=== PATIENT | male | born 1985 | race Caucasian/White ===

== ENCOUNTER 2018-12-21 10:01 | Emergency (ER) | payer OTHER ==
[2018-12-21] MEDS ORDERED: NORMAL SALINE 1000 ML 1,000 ML IV ONE (10:33)
[2018-12-21] MEDS ORDERED: MAGNESIUM SULFATE/D5W 1 GM/100 ML RTUPB IV ONE (10:34)
[2018-12-21] MEDS ORDERED: KETOROLAC TROMETHAMINE INJ/PF 30 MG/1 ML SDV IV ONE (10:34)
[2018-12-21] MEDS ORDERED: DEXAMETHASONE SOD PHOS INJ 10 MG/1 ML VIAL IV ONE (10:34)
[2018-12-21] MEDS ORDERED: METOCLOPRAMIDE HCL INJ/PF 10 MG/2 ML SDV IV ONE (10:34)
--- NOTE | 2018-12-21 10:34 | ER Document Report ---
ED General - General Chief Complaint: Headache Stated Complaint: FLU SYMPTOMS Time Seen by Provider: 12/21/18 10:21 Notes: Patient is a 33-year-old male that presents to the emergency department for chief complaint of fever and headache. Patient reports that started having headache yesterday morning, an adult over the course of the day, had been taken ibuprofen and Excedrin, without much relief of his headache. He then developed a fever which she recorded as a T-max of 103.2 yesterday evening, when he had the fever he was having associated nausea and vomiting, was able to keep any medicine down to try to help with that. He states that the fever broke last night he had a sweat, and feels better in that regard, still has some associated body aches, but the headache is his major concern, he has associated photophobia, and nausea. He has had migraines in the past, and this is similar to them, but he does not have frequent migraines. He denies having any numbness, tingling or weakness in his arms or legs, denies any blurred vision or change in vision, and denies having any neck stiffness. Past Medical History: Denies chronic medical conditions Past Surgical History: ACL surgery, cholecystectomy Social History: Admits to occasional alcohol use, denies tobacco or illicit drug use. Family History: Reviewed and noncontributory for presenting illness Allergies: Reviewed, see documented allergy list. REVIEW OF SYSTEMS: Other than noted above, the 12 point review of systems was reviewed with the patient and were negative, all pertinent findings are included in the HPI. PHYSICAL EXAMINATION: Vital signs reviewed, nursing noted reviewed. GENERAL: Patient appears uncomfortable on exam, but in no immediate distress HEAD: Atraumatic, normocephalic. EYES: Eyes appear normal, extraocular movements intact, sclera anicteric, conjunctiva are normal. ENT: nares patent, oropharynx clear without exudates. Moist mucous membranes. NECK: Normal range of motion, supple without lymphadenopathy LUNGS: Breath sounds clear to auscultation bilaterally and equal. No wheezes rales or rhonchi. HEART: Regular rate and rhythm without murmurs ABDOMEN: Soft, nontender, normoactive bowel sounds. No rebound, guarding, or rigidity. No masses appreciated. EXTREMITIES: Nontender, good range of motion, no pitting or edema. NEUROLOGICAL: No focal neurological deficits. Moves all extremities spontaneously Motor and sensory grossly intact on exam. PSYCH: Normal mood, normal affect. SKIN: Warm, Dry, normal turgor, no rashes or lesions noted on exposed skin TRAVEL OUTSIDE OF THE [place] IN LAST 30 DAYS: No - Related Data Allergies/Adverse Reactions: No Known Allergies Allergy (Verified 12/21/18 10:24) Past Medical History - Social History Smoking Status: Never Smoker Chew tobacco use (# tins/day): No Frequency of alcohol use: Occasional Drug Abuse: None Family History: Reviewed & Not Pertinent Patient has suicidal ideation: No Patient has homicidal ideation: No Renal/ Medical History: Denies: Hx Peritoneal Dialysis Past Surgical History: Reports: Hx Cholecystectomy, Hx Orthopedic Surgery - acl reconstruction Physical Exam - Vital signs Vitals: Temp Pulse Resp BP Pulse Ox 99.3 F 72 18 137/78 H 98 12/21/18 10:09 12/21/18 10:09 12/21/18 10:09 12/21/18 10:09 12/21/18 10:09 Course - Re-evaluation Re-evalutation: Patient seen and examined vital signs reviewed. Patient was evaluated and treated as appropriate for the patient's presenting symptoms and complaint, with consideration of any critical or life threatening conditions that may be associated with their obtained history and exam as noted above. Patient was treated with IV fluids, IV magnesium, dexamethasone, Toradol, and Reglan The patient was re-evaluated and was much improved, states he wanted to get some sleep, he is updated that his influenza was negative, will continue to monitor and repeat exam. Patient was reexamined again, and was feeling much better, his headache was completely resolved, at this point he did feel comfortable being discharged home. Evaluation was most consistent with headache, nonspecific and flulike symptoms, advised him to get rest, stay hydrated, and given a prescription for Fioricet, as well as Zofran to help with his symptoms at home. Plan of care was discussed with the patient at this point, after careful consideration I feel that that patient can be discharged from the emergency department, the patient was educated treatments and reasons to return to the emergency department based on their presumed diagnosis as noted above, they were advised to followup with a primary care physician in 2-3 days. Patient was agreeable to plan of care. *Note is created using voice recognition software and may contain spelling, syntax or grammatical errors. Laboratory 12/21/18 10:50 Influenza A (Rapid) NEGATIVE Influenza B (Rapid) NEGATIVE - Vital Signs Vital signs: Temp Pulse Resp BP Pulse Ox 99.3 F 72 18 137/78 H 98 12/21/18 10:09 12/21/18 10:09 12/21/18 10:09 12/21/18 10:09 12/21/18 10:09 Discharge - Discharge Clinical Impression: Flu-like symptoms Headache Qualifiers: Headache type: unspecified Headache chronicity pattern: unspecified pattern Intractability: not intractable Qualified Code(s): R51 - Headache Condition: Stable Disposition: HOME, SELF-CARE Instructions: Headache ([facility]) Additional Instructions: Please take medications as prescribed for headache and nausea and vomiting if needed, if your symptoms however are worsening, not improving at home, do not hesitate to return to the emergency department. If you develop numbness or weakness in 1 of your arms or legs or face, or slurred speech, do not hesitate to return to the emergency department immediately. Prescriptions: Butalb/Acetaminophen/Caffeine [Fioricet 50-300-40 mg Capsule] 1 cap PO Q6H PRN #12 cap PRN Reason: headache Ondansetron [Zofran Odt 4 mg Tablet] 1 tab PO Q8H PRN #15 tab.rapdis PRN Reason: For Nausea/Vomiting Referrals: TANYA RAO MD [ACTIVE STAFF] - Follow up in 3-5 days (or your primary care. )
[2018-12-21 11:25] LABS: A TYPE INFLUENZA AG NEGATIVE (NEGATIVE); B INFLUENZA AG NEGATIVE (NEGATIVE)
[2018-12-21 12:25] VITALS: BP 147/84
== END 2018-12-21 12:39 | disposition home or self-care (01) ==
LOC: ER 10:01
DX: R51 Headache (principal); R11.2 Nausea with vomiting, unspecified
CPT/HCPCS: 99283; 96375; 96365; 87804; J1885; J2765; J3475; J7030; J1100

== ENCOUNTER 2018-12-21 16:42 | Emergency (ER) | payer OTHER ==
[2018-12-21] MEDS ORDERED: NORMAL SALINE 1000 ML 1,000 ML IV ONE (16:54)
[2018-12-21] MEDS ORDERED: HYDROMORPHONE HCL INJ/PF 2 MG/ML AMPULE IV ONE (16:54)
[2018-12-21] MEDS ORDERED: PROMETHAZINE HCL INJ 25 MG/1 ML VIAL IV ONE (16:55)
--- NOTE | 2018-12-21 16:56 | ER Document Report ---
ED Medical Screen (RME) - General Chief Complaint: Headache Stated Complaint: HEADACHE Time Seen by Provider: 12/21/18 16:52 Notes: Patient is a 33-year-old male that presents to the emergency department for chief complaint of headache. Patient reports that his headache did improve for several hours after being discharged from the emergency department, but then came back, he took the Zofran and Fioricet as prescribed, his headache worsen, not explaining of body aches as well and decided come back to the emergency department to be reevaluated. Denies weakness in one arm or one leg, denies neck stiffness. ROS: Other than noted above, the 12 point review of systems was reviewed with the patient and were negative, all pertinent findings are included in the HPI. PHYSICAL EXAMINATION: Vital signs reviewed. GENERAL: Patient appears uncomfortable HEAD: Atraumatic, normocephalic. EYES: Pupils equal round extraocular movements intact, conjunctiva are normal. ENT: Nares patent NECK: Normal range of motion CV: Heart regular rate and rhythm LUNGS: No respiratory distress Musculoskeletal: Normal range of motion NEUROLOGICAL: Normal speech PSYCH: Patient appears uncomfortable MDM: Patient seen and examined for rapid initial assessment. Vital signs reviewed. A comprehensive ED assessment and evaluation of the patient, analysis of test results and completion of the medical decision making process will be conducted by additional ED providers. *Note is created using voice recognition software and may contain spelling, syntax or grammatical errors. TRAVEL OUTSIDE OF THE [place] IN LAST 30 DAYS: No - Related Data Allergies/Adverse Reactions: No Known Allergies Allergy (Verified 12/21/18 16:43) Past Medical History Renal/ Medical History: Denies: Hx Peritoneal Dialysis Past Surgical History: Reports: Hx Cholecystectomy, Hx Orthopedic Surgery - acl reconstruction
[2018-12-21 17:31] LABS: ABSOLUTE MONOCYTES (AUTO) 0.1 10^3/uL (0.1-1.4); ABSOLUTE NEUT (AUTO) 6.3 10^3/uL (1.7-8.2); BASOPHILS % (AUTO) 0.2 % (0-2); HEMATOCRIT 45.2 % (37.9-51.0); HEMOGLOBIN 15.6 g/dL (13.5-17.0); LYMPHOCYTES % (AUTO) 13.2 % (13-45); MEAN CORPUSCULAR HEMOGLOBIN 30.2 pg (27.0-33.4); MEAN CORPUSCULAR HGB CONC 34.6 g/dL (32.0-36.0); MEAN CORPUSCULAR VOLUME 87 fl (80-97); MONOCYTES % (AUTO) 1.8 % (3-13); PLATELET COUNT 235 10^3/uL (150-450); RED BLOOD COUNT 5.18 10^6/uL (4.35-5.55); RED CELL DISTRIBUTION WIDTH 13.2 % (11.5-14.0); SEGMENTED NEUTROPHILS % (AUTO) 84.8 % (42-78); TOTAL CELLS COUNTED % (AUTO) 100 %; WHITE BLOOD COUNT 7.4 10^3/uL (4.0-10.5)
--- NOTE | 2018-12-21 17:52 | RADIOLOGY REPORT (SQ) ---
EXAM DESCRIPTION: CT HEAD WITHOUT COMPLETED DATE/TIME: 12/21/2018 5:36 pm REASON FOR STUDY: headache COMPARISON: None. TECHNIQUE: Axial images acquired through the brain without intravenous contrast. Images reviewed wi th bone, brain and subdural windows. Additional sagittal and coronal reconstructions were generated. Images stored on PACS. All CT scanners at this facility use dose modulation, iterative reconstruction, and/or weight based d osing when appropriate to reduce radiation dose to as low as reasonably achievable (ALARA). [facility]: Dose Right [facility]: CareDose [facility]: Dose Right [facility]: Teradose 4D [facility]: Zentact RADIATION DOSE: CT Rad equipment meets quality standard of care and radiation dose reduction techniq ues were employed. CTDIvol: 53.2 mGy. DLP: 1017 mGy-cm. mGy. LIMITATIONS: None. FINDINGS: VENTRICLES: Normal size and contour. CEREBRUM: No masses. No hemorrhage. No midline shift. No evidence for acute infarction. Normal gra y/white matter differentiation. No areas of low density in the white matter. CEREBELLUM: No masses. No hemorrhage. No alteration of density. No evidence for acute infarction. EXTRAAXIAL SPACES: No fluid collections. No masses. ORBITS AND GLOBE: No intra- or extraconal masses. Normal contour of globe without masses. CALVARIUM: No fracture. PARANASAL SINUSES: No fluid or mucosal thickening. SOFT TISSUES: Small nonspecific nodules within subcutaneous fat overlying the left calvarium. OTHER: No other significant finding. IMPRESSION: NO ACUTE INTRACRANIAL IMAGING FINDINGS. EVIDENCE OF ACUTE STROKE: NO. COMMENT: Quality ID # [id number]: Final reports with documentation of one or more dose reduction techniques (e.g., Automated exposure control, adjustment of the mA and/or kV according to patient size, use of iterative reconstruction technique) TECHNICAL DOCUMENTATION: JOB ID: [id number] [employer]- All Rights Reserved Reading location - IP/workstation name: [email or web address]
[2018-12-21] MEDS ORDERED: PROCHLORPERAZINE EDISYLATE INJ 10 MG/2 ML VIAL IV ONE (19:34)
--- NOTE | 2018-12-21 19:34 | ER Document Report ---
ED Headache - General Chief Complaint: Headache Stated Complaint: HEADACHE Time Seen by Provider: 12/21/18 16:52 Primary Care Provider: EMMA MARCUS FNP-C [Primary Care Provider] - Follow up tomorrow Cannot obtain history due to: Intoxicated - From sedating medications given in triage Notes: Patient is a 33-year-old male without chronic medical problems who presents with 2 days of headache, body aches and fever. Patient states his last recorded fever was late last night. His son was recently positive for both flu a and flu B. Patient was seen in the emergency department earlier today, had a relatively reassuring workup and was discharged home. States that he did have relief after receiving a migraine cocktail but that shortly after getting home his headache rebounded, became more severe prompting him to return to the emergency department for repeat assessment. Patient denies any significant neck stiffness or rigidity. No focal weakness or numbness. History is somewhat limited at the time of my initial assessment the patient is quite sedated from receiving hydromorphone and promethazine in triage. TRAVEL OUTSIDE OF THE [place] IN LAST 30 DAYS: No - Related Data Allergies/Adverse Reactions: No Known Allergies Allergy (Verified 12/21/18 16:43) Past Medical History - General Information source: Patient, Relative - Social History Smoking Status: Never Smoker Chew tobacco use (# tins/day): No Frequency of alcohol use: Rare Drug Abuse: None Lives with: Spouse/Significant other Family History: Reviewed & Not Pertinent Patient has suicidal ideation: No Patient has homicidal ideation: No Renal/ Medical History: Denies: Hx Peritoneal Dialysis Past Surgical History: Reports: Hx Cholecystectomy, Hx Orthopedic Surgery - acl reconstruction Review of Systems - Review of Systems Notes: Constitutional: Positive for fever. HENT: Negative for sore throat. Eyes: Negative for visual changes. Cardiovascular: Negative for chest pain. Respiratory: Negative for shortness of breath. Gastrointestinal: Positive for nausea and vomiting Genitourinary: Negative for dysuria. Musculoskeletal: Negative for back pain. Skin: Negative for rash. Neurological: Positive headache 10 point ROS negative except as marked above and in HPI. Physical Exam - Vital signs Vitals: Temp Pulse Resp BP Pulse Ox 99.5 F 96 18 136/86 H 99 12/21/18 16:48 12/21/18 16:48 12/21/18 16:48 12/21/18 16:48 12/21/18 16:48 Interpretation: Normal Notes: PHYSICAL EXAMINATION: GENERAL: Sedated although wakes to loud voice, responds to questions but does fall back to sleep. HEAD: Atraumatic, normocephalic. EYES: Pupils equal round and reactive to light, extraocular movements intact, sclera anicteric, conjunctiva are normal. ENT: nares patent, oropharynx clear without exudates. Moderately dry mucous membranes. NECK: Normal range of motion, supple without lymphadenopathy, no meningismus, full neck range of motion. LUNGS: Breath sounds clear to auscultation bilaterally and equal. No wheezes rales or rhonchi. HEART: Regular rate and rhythm without murmurs ABDOMEN: Soft, nontender, normoactive bowel sounds. No guarding, no rebound. No masses appreciated. EXTREMITIES: Normal range of motion, no pitting or edema. No cyanosis. NEUROLOGICAL: Face symmetric. Tongue protrudes midline. Extraocular motions intact. Pupils are 2 mm and equally reactive. Normal speech, normal gait. 5 out of 5 strength in both the distal and proximal upper and lower extremities bilaterally. Sensation is grossly intact throughout. Finger to nose testing normal. Pronator drift normal. PSYCH: Sedated SKIN: Warm, Dry, normal turgor, no rashes or lesions noted. Course - Re-evaluation Re-evalutation: 12/21/18 19:31 Presentation of a headache that appears to be most consistent with tension versus migrainous type headache likely secondary to an underlying infectious etiology. Patient reports that he has had fever, body aches and constitutional symptoms at home. Headache was not maximal in onset, patient has no focal neurologic deficits, no nuchal rigidity, vital signs within normal limits, no papilledema. Based on clinical history and examination I do not suspect an acute subarachnoid hemorrhage, dural venous sinus thrombosis, or intercranial mass. A CT of the head was obtained in triage for unclear reasons and is noted to be normal. The patient is bouncing back from a visit earlier today in which he did have significant relief using appropriate migraine medications but states the headache did rebound at home prompting him to return. The patient reports that he had a fever at home although has been afebrile here in the emergency department on all occasions throughout the day today. He has no meningismus, no nuchal rigidity, denies neck pain. No leukocytosis on his CBC earlier today nor on repeat. Low clinical suspicion for a bacterial meningitis although a viral meningitis would fit the picture quite well. Unfortunately, the patient did receive hydromorphone and promethazine for headache in triage today neither which is effective for headaches and has not improved the patient's headache. He is however unfortunately intoxicated secondary to his medications and cannot undergo a risks and benefits assessment with me regarding proceeding with lumbar puncture. 12/21/182229 Patient has become more clinically sober. His Bette has come to the bedside. We have had an extensive conversation regarding the patient's overall clinical picture. We did have a risks and benefits conversation about proceeding with lumbar puncture for definitive exclusion of bacterial meningitis versus observation at home with the assumption of a more probable diagnosis of viral meningitis. We did review that if the patient were to have bacterial meningitis and we were to miss this diagnosis that he could go home, deteriorate and . We reviewed the risks of the lumbar puncture including infection, bleeding and post lumbar puncture headache. We did review the relatively low probability of a bacterial meningitis given normal vital signs, normal white blood cell count, no progression of symptoms. After review of these considerations patient and his have elected to decline lumbar puncture. I have provided him with my personal cell phone number, asked him to contact me for any deterioration or any questions they may have. At this time will discharge with return precautions and follow-up recommendations. Verbal discharge instructions given a the bedside and opportunity for questions given. Medication warnings reviewed. Patient is in agreement with this plan and has verbalized understanding of return precautions and the need for primary care follow-up in the next 24-72 hours. - Vital Signs Vital signs: Temp Pulse Resp BP Pulse Ox 98.2 F 96 18 127/72 H 98 12/21/18 22:01 12/21/18 16:48 12/21/18 22:01 12/21/18 22:01 12/21/18 22:01 - Laboratory Result Diagrams: 12/21/18 17:05 12/21/18 19:58 Laboratory results interpreted by me: 12/21/18 12/21/18 17:05 19:58 Seg Neutrophils % 84.8 H Monocytes % 1.8 L Glucose 148 H - Diagnostic Test Radiology reviewed: Image reviewed, Reports reviewed Radiology results interpreted by me: 12/21/18 21:41 CT head: No acute intracranial bleed or mass Discharge - Discharge Clinical Impression: Headache Qualifiers: Headache type: unspecified Headache chronicity pattern: acute headache Intractability: not intractable Qualified Code(s): R51 - Headache Fever Qualifiers: Fever type: unspecified Qualified Code(s): R50.9 - Fever, unspecified Condition: Stable Disposition: HOME, SELF-CARE Additional Instructions: As we discussed, I suspect that you likely have a viral meningitis. The one alt ernative, more concerning cause of the a bacterial meningitis. If you have this I would expect you to deteriorate very rapidly from the time of discharge today. Thankfully, your vitals and labs are all normal today and do not suggest a bacterial meningitis picture. Unfortunately, there is no good treatment for the type of headache that your having. Over time your body will clear the infection and associated inflammation and your headache should resolve. After our conversation today, you have elected to decline a lumbar puncture to definitively exclude a bacterial meningitis. You have my cell phone number and I would asked that if you have any concerns you please contact me immediately or immediately return back to the emergency department. Please specifically return if you become confused, have worsening of your headache, or unable to keep fluids down due to vomiting, pass out, develop focal weakness or numbness, or have any other symptoms that are worrisome to you. Referrals: EMMA MARCUS FNP-C [Primary Care Provider] - Follow up tomorrow
[2018-12-21 20:24] LABS: ALANINE AMINOTRANSFERASE 42 U/L (21-72); ALBUMIN 4.5 g/dL (3.5-5.0); ALKALINE PHOSPHATASE 50 U/L (38-126); ANION GAP 8 (5-19); ASPARTATE AMINO TRANSFERASE 37 U/L (17-59); BILIRUBIN,DIRECT 0.2 mg/dL (0.0-0.4); BLOOD UREA NITROGEN 11 mg/dL (7-20); CALCIUM 9.2 mg/dL (8.4-10.2); CARBON DIOXIDE 27 mmol/L (22-30); CHLORIDE 106 mmol/L (98-107); GLUCOSE 148 mg/dL (75-110); POTASSIUM 4.6 mmol/L (3.6-5.0); SODIUM 141.1 mmol/L (137-145)
[2018-12-21 22:20] VITALS: BP 127/72
== END 2018-12-21 22:20 | disposition home or self-care (01) ==
LOC: ER 16:42
DX: R51 Headache (principal); R11.2 Nausea with vomiting, unspecified; R50.9 Fever, unspecified; Z20.828 Contact with and (suspected) exposure to other viral communicable diseases
CPT/HCPCS: 99284; 96361; 96374; 96375; 36415; 85025; 80053; 70450; J1170; J0780; J2550; J7030

== ENCOUNTER 2018-12-22 19:34 | Inpatient (IN) | payer OTHER ==
[2018-12-22] MEDS ORDERED: RINGERS SOLUTION,LACTATED 1,000 ML IV ONE (19:43)
[2018-12-22] MEDS ORDERED: HALOPERIDOL LACTATE INJ 5 MG/1 ML VIAL IV ONE (19:43)
[2018-12-22] MEDS ORDERED: KETOROLAC TROMETHAMINE INJ/PF 30 MG/1 ML SDV IV ONE (19:43)
[2018-12-22] MEDS ORDERED: METOCLOPRAMIDE HCL INJ/PF 10 MG/2 ML SDV IV ONE (20:12)
--- NOTE | 2018-12-22 20:17 | ER Document Report ---
ED General - General Chief Complaint: Headache Stated Complaint: HEAD PAIN Time Seen by Provider: 12/22/18 19:42 Notes: Patient is a 33-year-old male without chronic medical problems seen by me yesterday who returns after I discussed with his his ongoing symptoms and encouraged him to return to the emergency department. In summary I contacted the today at approximately 1400 and she noted that the patient was doing much better than yesterday. At approximately 1800 the contacted me via cell phone and inform me that the patient was having increasing headache again and now vomiting at home. I instructed them to return to the emergency department. The patient on arrival continues to complain of a severe, throbbing, global headache. Pending his head forward or moving dramatically worsens the pain. He has tried oral Reglan, Fioricet and ibuprofen at home with no improvement of the headache. He denies ever having such a severe headache in the past. He denies confusion, recurrence of fever, focal weakness or numbness. TRAVEL OUTSIDE OF THE [place] IN LAST 30 DAYS: No - Related Data Allergies/Adverse Reactions: No Known Allergies Allergy (Verified 12/21/18 16:43) Past Medical History - General Information source: Patient - Social History Smoking Status: Never Smoker Frequency of alcohol use: None Drug Abuse: None Lives with: Spouse/Significant other Family History: Reviewed & Not Pertinent Renal/ Medical History: Denies: Hx Peritoneal Dialysis Past Surgical History: Reports: Hx Cholecystectomy, Hx Orthopedic Surgery - acl reconstruction Review of Systems - Review of Systems Notes: Constitutional: Negative for fever. HENT: Negative for sore throat. Eyes: Negative for visual changes. Cardiovascular: Negative for chest pain. Respiratory: Negative for shortness of breath. Gastrointestinal: Negative for abdominal pain, positive for vomiting Genitourinary: Negative for dysuria. Musculoskeletal: Negative for back pain. Skin: Negative for rash. Neurological: Positive for severe headache 10 point ROS negative except as marked above and in HPI. Physical Exam - Vital signs Vitals: Temp Pulse Resp BP Pulse Ox 99.0 F 97 24 H 134/81 H 99 12/22/18 19:38 12/22/18 19:38 12/22/18 19:38 12/22/18 19:38 12/22/18 19:38 Interpretation: Tachypneic Notes: PHYSICAL EXAMINATION: GENERAL: Appears extremely uncomfortable but in no acute distress HEAD: Atraumatic, normocephalic. EYES: Pupils equal round and reactive to light, extraocular movements intact, sclera anicteric, conjunctiva are normal. ENT: nares patent, oropharynx clear without exudates. Dry mucous membranes. NECK: Normal range of motion, supple without lymphadenopathy, mild pain with range of motion of the neck but able to complete this task. LUNGS: Breath sounds clear to auscultation bilaterally and equal. No wheezes rales or rhonchi. HEART: Regular rate and rhythm without murmurs ABDOMEN: Soft, nontender, normoactive bowel sounds. No guarding, no rebound. No masses appreciated. EXTREMITIES: Normal range of motion, no pitting or edema. No cyanosis. NEUROLOGICAL: Face symmetric. Tongue protrudes midline. Extraocular motions intact. Pupils are 2 mm and equally reactive. Normal speech, normal gait. 5 out of 5 strength in both the distal and proximal upper and lower extremities bilaterally. Sensation is grossly intact throughout. Finger to nose testing normal. Pronator drift normal. PSYCH: Moderately anxious SKIN: Warm, Dry, normal turgor, no rashes or lesions noted. Course - Re-evaluation Re-evalutation: 12/22/18 20:12 Patient represents today after I have been conversing with his throughout the day today. The patient was initially feeling much better this afternoon when I first touch base around 1400. Around 1800 the contacted me and notified me that the patient was beginning to vomit and having worsening headache again. I asked that they return to the hospital. He did apparently h ave a syncopal episode in route to the hospital. On exam patient appears unchanged from yesterday. He has no focal meningismus. No neurologic deficits. No papilledema. However given that the patient is not improving we did elect to proceed forward with a lumbar puncture. This was completed without difficulty, clear CSF drainage. Mild traumatic tap on initial tube 1 which cleared by the fourth tube without any concerning delay. I did also apply a paraspinous block patient's C6-7 region on his neck without any significant improvement of his headache. Will place an IV, obtain blood work for comparison, cultures, and provide haloperidol, Toradol and metoclopramide as well as IV fluids and attempt to improve his headache. I will also proceed with a CT venogram of the patient's head to evaluate for dural venous sinus thrombosis as an alternative consideration to his severe, atypical headache. I do not clinically suspect bacterial meningitis at this point as discussed yesterday particular given that the patient is not worsen, remains without tachycardia has not had any recurrence of fever. I do still believe the most probable diagnosis is a viral meningitis. However at this point given his failure to improve a more aggressive workup is warranted. 12/22/18 21:56 I have reassessed this patient on multiple occasions. His headache has significantly improved after medical interventions. His lumbar puncture does demonstrate findings consistent with a viral meningitis. Gram stain is negative. Vitals improved. Patient has been started on 2 g of ceftriaxone, vancomycin for empiric coverage although again I think the likelihood of Bactrim meningitis is extraordinarily improbable particular given CSF results which are much more suggestive of viral meningeal picture this is also clinically much more consistent with the patient's overall picture. Discussed this case with the hospitalist who has accepted the patient for admission. - Vital Signs Vital signs: Temp Pulse Resp BP Pulse Ox 98.4 F 97 24 H 134/81 H 99 12/22/18 21:00 12/22/18 19:38 12/22/18 19:38 12/22/18 19:38 12/22/18 19:38 - Laboratory Result Diagrams: 12/22/18 20:46 12/22/18 20:46 Laboratory results interpreted by me: 12/22/18 12/22/18 12/22/18 20:05 20:05 20:46 Glucose 112 H CSF WBC 68 H 31 H CSF RBC 1285 H - Diagnostic Test Radiology reviewed: Image reviewed, Reports reviewed Radiology results interpreted by me: 12/22/18 22:05 CTA head: No acute intracranial bleed or aneurysm. - EKG Interpretation by Me Additional EKG results interpreted by me: 12/23/18 04:04 Sinus rhythm, rate 70. No ST elevations or depressions. QTC is 423. Procedures - Lumbar Puncture Lumbar puncture Consent obtained: Yes - Verbal Lumbar puncture pre-procedure: Sterile PPE donned, Chloraprep applied, Sterile drapes applied Patient position: Sitting Needle size: 22 Lumbar puncture location: L4 Anesthetic type: 1% Lidocaine mL's of anesthetic: 6 Amount/type of drainage: 5 cc clear Number of attempts: 1 Complications: No Critical Care Note - Critical Care Note Total time excluding time spent on procedures (mins): 40 Comments: Critical care time spent obtaining history from patient or surrogate, development of treatment plan with patient or surrogate, evaluation of patient's response to treatment, examination of patient, ordering and performing treatments and interventions, ordering and review of laboratory studies, re- evaluation of patient's condition, ordering and review of radiographic studies and review of old charts Discharge - Discharge Clinical Impression: Viral meningitis Headache Qualifiers: Headache type: unspecified Headache chronicity pattern: acute headache Intr actability: intractable Qualified Code(s): R51 - Headache Nausea and vomiting Qualifiers: Vomiting type: unspecified Vomiting Intractability: non-intractable Qualified Code(s): R11.2 - Nausea with vomiting, unspecified Condition: Fair Disposition: ADMITTED INPATIENT Admitting Provider: Hospitalist Unit Admitted: Medical Floor
[2018-12-22 20:50] LABS: GLUCOSE,CSF 64 mg/dL (40-70); PROTEIN,CSF 56 mg/dL (12-60)
[2018-12-22 20:57] LABS: CSF TUBE NUMBER 1
[2018-12-22 20:58] LABS: APPEARANCE ALL TUBES CLEAR; APPEARANCE TUBE 1 CLEAR; APPEARANCE TUBE 2 CLEAR; APPEARANCE TUBE 3 CLEAR; APPEARANCE TUBE 4 CLEAR; COLOR TUBE 1 STRAW; COLOR TUBE 2 COLORLESS; COLOR TUBE 3 COLORLESS; COLOR TUBE 4 COLORLESS
[2018-12-22 20:59] LABS: RED BLOOD CELL,CSF 1285 /uL (0-10)
[2018-12-22 21:00] LABS: WHITE BLOOD CELL,CSF 68 /uL (0-5)
[2018-12-22 21:08] LABS: CSF TUBE NUMBER 4
[2018-12-22 21:09] LABS: RED BLOOD CELL,CSF 85 /uL (0-10)
[2018-12-22 21:10] LABS: ABSOLUTE LYMPHOCYTES (AUTO) 2.2 10^3/uL (0.5-4.7); ABSOLUTE MONOCYTES (AUTO) 0.6 10^3/uL (0.1-1.4); ABSOLUTE NEUT (AUTO) 4.9 10^3/uL (1.7-8.2); BASOPHILS % (AUTO) 0.4 % (0-2); EOSINOPHILS % (AUTO) 0.1 % (0-6); HEMATOCRIT 40.7 % (37.9-51.0); LYMPHOCYTES % (AUTO) 28.4 % (13-45); MEAN CORPUSCULAR HEMOGLOBIN 29.4 pg (27.0-33.4); MEAN CORPUSCULAR HGB CONC 34.3 g/dL (32.0-36.0); MEAN CORPUSCULAR VOLUME 86 fl (80-97); MONOCYTES % (AUTO) 7.5 % (3-13); PLATELET COUNT 202 10^3/uL (150-450); RED BLOOD COUNT 4.75 10^6/uL (4.35-5.55); RED CELL DISTRIBUTION WIDTH 12.8 % (11.5-14.0); SEGMENTED NEUTROPHILS % (AUTO) 63.6 % (42-78); TOTAL CELLS COUNTED % (AUTO) 100 %; WHITE BLOOD COUNT 7.7 10^3/uL (4.0-10.5)
[2018-12-22 21:10] LABS: WHITE BLOOD CELL,CSF 31 /uL (0-5)
[2018-12-22] MEDS ORDERED: CEFTRIAXONE INJ 1000 MG VIAL IV ONE (21:15)
--- NOTE | 2018-12-22 21:20 | RADIOLOGY REPORT (SQ) ---
EXAM DESCRIPTION: CT HEAD ANGIOGRAPHY WITHOUT THEN WITH IV CONTRAST COMPLETED DATE/TME: 12/22/2018 20:09 CLINICAL HISTORY: 33 years, Male, eval dural venous thrombosis COMPARISON: None. TECHNIQUE: 408 Images stored on PACS. All CT scanners at this facility use dose modulation, iterative reconstruction, and/or weight based dosing when appropriate to reduce radiation dose to as low as reasonably achievable (ALARA). Axial CTA images of the [place] of [place] were obtained with coronal and sagittal MIPS reconstructions. Attempted CT V images were also obtained to evaluate the dural venous sinuses. [facility]: Dose Right [facility]: CareDose [facility]: Dose Right [facility]: Teradose 4D [facility]: US Toxicology LIMITATIONS: None. FINDINGS: CTA: The vertebral basilar system is unremarkable. Negative for basilar tip aneurysm. The petrous and remaining intracranial portions of the internal carotid arteries are widely patent and unremarkable. The [place] of [place] is intact. 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 No CTA evidence for vascular encasement or displacement. No CTA evidence for aneurysm or arteriovenous malformation. CTV: Somewhat suboptimal opacification of the dural venous sinuses does limit the study. However, no definitive filling defects or evidence for dural venous sinus thrombosis. The visualized sigmoid sinuses, straight sinus, superior sagittal sinus, torcula, vein of Hema and inferior sagittal sinus are unremarkable. If clinical suspicion for venous thrombosis remains high, consider MRV. IMPRESSION: Unremarkable CTA and CTV, as above. TECHNICAL DOCUMENTATION: Quality ID # 436: Final reports with documentation of one or more dose reduction techniques (e.g., Automated exposure control, adjustment of the mA and/or kV according to patient size, use of iterative reconstruction technique) copyright 2011 [employer]- All Rights Reserved
[2018-12-22 21:29] LABS: ALANINE AMINOTRANSFERASE 41 U/L (21-72); ALBUMIN 4.4 g/dL (3.5-5.0); ALKALINE PHOSPHATASE 46 U/L (38-126); ANION GAP 11 (5-19); ASPARTATE AMINO TRANSFERASE 27 U/L (17-59); BILIRUBIN,DIRECT 0.1 mg/dL (0.0-0.4); BLOOD UREA NITROGEN 12 mg/dL (7-20); CALCIUM 9.5 mg/dL (8.4-10.2); CARBON DIOXIDE 26 mmol/L (22-30); CHLORIDE 104 mmol/L (98-107); GLUCOSE 112 mg/dL (75-110); POTASSIUM 3.8 mmol/L (3.6-5.0)
[2018-12-22] MEDS ORDERED: VANCOMYCIN HCL INJ 1000 MG VIAL IV ONE (21:33)
--- NOTE | 2018-12-22 22:32 | EKG REPORT ---
SEVERITY:- BORDERLINE ECG - SINUS RHYTHM BORDERLINE T ABNORMALITIES, INFERIOR LEADS : Confirmed by: Laith Rodriguez MD 22-Dec-2018 22:31:28
[2018-12-22] MEDS ORDERED: MAGNESIUM HYDROXIDE SUSP 30 ML UDCUP PO PRN (22:46)
[2018-12-22] MEDS ORDERED: MAG HYDROX/AL HYDROX/SIMETH SUSP 30 ML UDCUP PO PRN (22:46)
[2018-12-22] MEDS ORDERED: ACETAMINOPHEN 650 MG SUPP.RECT PR PRN (22:51)
[2018-12-22] MEDS ORDERED: ACETAMINOPHEN 325 MG TABLET PO PRN (22:51)
[2018-12-22] MEDS ORDERED: HALOPERIDOL LACTATE INJ 5 MG/1 ML VIAL IV PRN (22:52)
--- NOTE | 2018-12-23 01:36 | PDOC H&P ---
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 The patient had been treated in the ER yesterday and was discharged home however his headache returned and he began having increased nausea and vomiting and was running a fever today causing him to be asked to return to the ER for further evaluation. He admits that he began having a mild, dull, continuous, generalized headache 2 days prior to admission which has gradually increased to the point where it is now a severe, dull, continuous, throbbing, global headache which over the last 24 hours has been accompanied by nausea and vomiting with a fever noted earlier today. The headache is made worse by activity especially movement of his head bending forward or extending. He denies prior similar episodes and has not identified any other aggravating or ameliorating factors for his headache. In the emergency room he was treated with IV fluids and was given Haldol to control his nausea and vomiting, with the added benefit that it also seemed to provide significant relief of his headache. His lumbar puncture showed an aseptic meningitis picture which clinically matched the rest of his laboratory evaluation. Because of his failure to resolve with attempted outpatient treatment he will be hospitalized for further evaluation and ongoing care. Past Medical History Cardiac Medical History: Denies: Coronary Artery Disease, Hypertension Pulmonary Medical History: Denies: Asthma, Chronic Obstructive Pulmonary Disease (COPD) EENT Medical History: Reports: None Neurological Medical History: Denies: Multiple Sclerosis, Seizures Endocrine Medical History: Denies: Diabetes Mellitus Type 1, Diabetes Mellitus Type 2 Renal/ Medical History: Denies: Chronic Kidney Disease, Nephrolithiasis Malignancy Medical History: Reports: None GI Medical History: Denies: Cirrhosis, Hepatitis Musculoskeltal Medical History: Denies: Arthritis, Fibromyalgia Skin Medical History: Denies: Eczema, Psoriasis Psychiatric Medical History: Denies: Alcohol Dependency, Substance Abuse, Tobacco Dependency Traumatic Medical History: Reports: None Hematology: Denies: Anemia, Bleeding Tendencies Infectious Medical History: Reports: None Past Surgical History Past Surgical History: Reports: Cholecystectomy, Orthopedic Surgery - acl reconstruction Social History Information Source: Patient Lives with: Spouse/Significant other Smoking Status: Never Smoker Frequency of Alcohol Use: Occasional Hx Recreational Drug Use: No Hx Prescription Drug Abuse: No - Advance Directive Resuscitation Status: Full Code Surrogate healthcare decision maker:: Family History Family History: CAD, DM Parental Family History Reviewed: Yes Children Family History Reviewed: No Sibling(s) Family History Reviewed.: Yes Medication/Allergy Home Medications: Butalb/Acetaminophen/Caffeine [Fioricet 50-300-40 mg Capsule] 1 cap PO Q6H PRN #12 cap 12/21/18 Ondansetron [Zofran Odt 4 mg Tablet] 1 tab PO Q8H PRN #15 tab.rapdis 12/21/18 Allergies/Adverse Reactions: No Known Allergies Allergy (Verified 12/21/18 16:43) Review of Systems Constitutional: PRESENT: as per HPI, fever(s), headache(s) Eyes: ABSENT: visual disturbances, other - Eye pain Ears: ABSENT: hearing changes, other - Ear pain Nose, Mouth, and Throat: ABSENT: mouth pain, sore throat Cardiovascular: ABSENT: chest pain, dyspnea on exertion, palpitations Respiratory: ABSENT: cough, dyspnea Gastrointestinal: PRESENT: as per HPI, nausea, vomiting. ABSENT: abdominal pain, constipation, diarrhea Genitourinary: ABSENT: dysuria, hematuria Musculoskeletal: ABSENT: deformity, joint swelling Integumentary: ABSENT: pruritus, rash Neurological: ABSENT: confusion, convulsions, memory loss, tremor(s) Psychiatric: ABSENT: anxiety, depression Endocrine: ABSENT: cold intolerance, heat intolerance Hematologic/Lymphatic: ABSENT: easy bleeding, easy bruising Physical Exam Vital Signs: Temp Pulse Resp BP Pulse Ox 98.4 F 97 24 H 134/81 H 99 12/22/18 21:00 12/22/18 19:38 12/22/18 19:38 12/22/18 19:38 12/22/18 19:38 Intake & Output 12/20/18 12/21/18 12/22/18 23:59 23:59 23:59 Intake Total 1000 Balance 1000 Weight 108.1 kg General appearance: PRESENT: no acute distress, cooperative, obese, other - Resting on his ER cot but easily arousable to answer questions Head exam: PRESENT: atraumatic, normocephalic Eye exam: PRESENT: conjunctiva pink, EOMI, scleral icterus. ABSENT: nystagmus Ear exam: PRESENT: normal external ear exam. ABSENT: bleeding, drainage Mouth exam: PRESENT: dry mucosa, neck supple - Neck is supple with full range of motion though the patient does have increased discomfort of his headache with fu ll flexion and extension of the neck. Neck exam: ABSENT: JVD, thyromegaly, tracheal deviation Respiratory exam: PRESENT: clear to auscultation da[place], symmetrical, unlabored Cardiovascular exam: PRESENT: RRR. ABSENT: clicks, gallop, rubs Pulses: PRESENT: normal radial pulses, normal dorsalis pedis pul Vascular exam: PRESENT: normal capillary refill. ABSENT: pallor GI/Abdominal exam: PRESENT: normal bowel sounds, soft Rectal exam: PRESENT: deferred Extremities exam: ABSENT: joint swelling, pedal edema, tenderness Musculoskeletal exam: PRESENT: full ROM, normal inspection Neurological exam: PRESENT: oriented to person, oriented to place, oriented to time, oriented to situation Psychiatric exam: PRESENT: appropriate affect, normal mood Skin exam: PRESENT: dry, intact, warm. ABSENT: jaundice, rash, urticaria Results Laboratory Results: 12/22/18 20:46 12/22/18 20:46 12/22/18 12/22/18 12/22/18 20:05 20:05 20:05 WBC RBC Hgb Hct MCV MCH MCHC RDW Plt Count Seg Neutrophils % Lymphocytes % Monocytes % Eosinophils % Basophils % Absolute Neutrophils Absolute Lymphocytes Absolute Monocytes Absolute Eosinophils Absolute Basophils Sodium Potassium Chloride Carbon Dioxide Anion Gap BUN Creatinine Est GFR ( Amer) Est GFR (Non-Af Amer) Glucose Lactic Acid Calcium Total Bilirubin AST ALT Alkaline Phosphatase Total Protein Albumin Fluid Tube Number 1 4 CSF Volume 4.0 4.0 CSF Appearance CLEAR CSF WBC 68 H 31 H CSF RBC 1285 H 85 CSF Color (1) STRAW CSF Appearance (1) CLEAR CSF Color (2) COLORLESS CSF Appearance (2) CLEAR CSF Color (3) COLORLESS CSF Appearance (3) CLEAR CSF Color (4) COLORLESS CSF Appearance (4) CLEAR CSF Glucose 64 CSF Total Protein 56 12/22/18 12/22/18 12/22/18 20:46 20:46 20:46 WBC 7.7 RBC 4.75 Hgb 14.0 Hct 40.7 MCV 86 MCH 29.4 MCHC 34.3 RDW 12.8 Plt Count 202 Seg Neutrophils % 63.6 Lymphocytes % 28.4 Monocytes % 7.5 Eosinophils % 0.1 Basophils % 0.4 Absolute Neutrophils 4.9 Absolute Lymphocytes 2.2 Absolute Monocytes 0.6 Absolute Eosinophils 0.0 Absolute Basophils 0.0 Sodium 141.0 Potassium 3.8 Chloride 104 Carbon Dioxide 26 Anion Gap 11 BUN 12 Creatinine 0.86 Est GFR ( Amer) > 60 Est GFR (Non-Af Amer) > 60 Glucose 112 H Lactic Acid 1.6 Calcium 9.5 Total Bilirubin 1.0 AST 27 ALT 41 Alkaline Phosphatase 46 Total Protein 7.0 Albumin 4.4 Fluid Tube Number CSF Volume CSF Appearance CSF WBC CSF RBC CSF Color (1) CSF Appearance (1) CSF Color (2) CSF Appearance (2) CSF Color (3) CSF Appearance (3) CSF Color (4) CSF Appearance (4) CSF Glucose CSF Total Protein 12/22/18 20:46 Troponin I < 0.012 Impressions: Head CTA 12/22/18 20:09 IMPRESSION: Unremarkable CTA and CTV, as above. TECHNICAL DOCUMENTATION: Quality ID # 436: Final reports with documentation of one or more dose reduction techniques (e.g., Automated exposure control, adjustment of the mA and/or kV according to patient size, use of iterative reconstruction technique) copyright 2011 [employer]- All Rights Reserved Assessment & Plan - Diagnosis (1) Aseptic meningitis Is this a current diagnosis for this admission?: Yes Plan: Patient will be admitted to the hospital for supportive and symptomatic cares to treat his aseptic meningitis. He will receive IV fluids and other general supportive measures as he recovers. His infection will be assessed on a daily basis with a CBC. He was empirically placed on Rocephin in the emergency room and this will be continued at 2 g IV every 12 hours until CSF cultures have been negative for 72 hours. He will also use morphine 2-4 mg IV every 2 hours as needed for headache pain not responding to Haldol. (2) Intractable vomiting with nausea Qualifiers: Vomiting type: unspecified Qualified Code(s): R11.2 - Nausea with vomiting, unspecified Is this a current diagnosis for this admission?: Yes Plan: The patient's intractable vomiting has been responsive only to Haldol. The patient will continue to receive IV Haldol 5 mg every 4 hours as needed for vomiting or headache. His electrolyte will be assessed on a daily basis with a BMP. (3) Intractable headache Qualifiers: Headache type: unspecified Headache chronicity pattern: acute headache Q ualified Code(s): R51 - Headache Is this a current diagnosis for this admission?: Yes Plan: The patient's intractable headache is been thus far responsive to use of Haldol 5 mg IV every 4 hours as needed for headache or vomiting. He will also use morphine 2-4 mg IV every 2 hours as needed for headache pain not responding to Haldol. (4) Obesity (BMI 30.0-34.9) Is this a current diagnosis for this admission?: Yes Plan: Patient will be encouraged to make appropriate lifestyle and dietary changes to bring about weight loss to help improve his overall health. - Time Time Spent: 30 to 50 Minutes Critical Time spent with patient: Less than 15 minutes Medications reviewed and adjusted accordingly: Yes Anticipated discharge: Home - Inpatient Certification Based on my medical assessment, after consideration of the patient's comorbidities, presenting symptoms, or acuity I expect that the services needed warrant INPATIENT care.: Yes I certify that my determination is in accordance with my understanding of Medicare's requirements for reasonable and necessary INPATIENT services [42 CFR 412.3e].: Yes Medical Necessity: Failure to Improve With Outpatient Therapy, Need Close Monitoring Due to Risk of Patient Decompensation, Need For IV Fluids, Need for N eurological Checks, Need for Pain Control, Need for IV Antibiotics, Risk of Complication if Not Cared For in Hospital
[2018-12-23] MEDS: NALBUPHINE HCL INJ 10 MG/1 ML AMPULE IV PRN ×5 (02:13→21:23)
[2018-12-23] MEDS: POTASSI CL 20 MEQ/D5-1/2NS 1L 1,000 ML IV PRN ×3 (02:50→23:30)
[2018-12-23] MEDS ORDERED: VANCOMYCIN HCL INJ 1000 MG VIAL IV PRN (04:04)
[2018-12-23] MEDS ORDERED: VANCOMYCIN HCL INJ 1000 MG VIAL IV SCH (06:00)
[2018-12-23] MEDS ORDERED: VANCOMYCIN HCL 1,500 MG in DEXTROSE 5%-WATER 250 ML IV ONE (06:00)
[2018-12-23] MEDS ORDERED: VANCOMYCIN HCL INJ 500 MG VIAL ONE (06:16)
[2018-12-23 06:35] LABS: ABSOLUTE MONOCYTES (AUTO) 0.5 10^3/uL (0.1-1.4); ABSOLUTE NEUT (AUTO) 5.5 10^3/uL (1.7-8.2); BASOPHILS % (AUTO) 0.3 % (0-2); HEMATOCRIT 39.5 % (37.9-51.0); HEMOGLOBIN 13.6 g/dL (13.5-17.0); LYMPHOCYTES % (AUTO) 24.4 % (13-45); MEAN CORPUSCULAR HEMOGLOBIN 29.7 pg (27.0-33.4); MEAN CORPUSCULAR HGB CONC 34.5 g/dL (32.0-36.0); MEAN CORPUSCULAR VOLUME 86 fl (80-97); MONOCYTES % (AUTO) 6.1 % (3-13); PLATELET COUNT 202 10^3/uL (150-450); RED BLOOD COUNT 4.58 10^6/uL (4.35-5.55); RED CELL DISTRIBUTION WIDTH 13.3 % (11.5-14.0); SEGMENTED NEUTROPHILS % (AUTO) 69.2 % (42-78); TOTAL CELLS COUNTED % (AUTO) 100 %
[2018-12-23 06:59] LABS: ANION GAP 9 (5-19); BLOOD UREA NITROGEN 9 mg/dL (7-20); CALCIUM 8.5 mg/dL (8.4-10.2); CARBON DIOXIDE 28 mmol/L (22-30); CHLORIDE 104 mmol/L (98-107); GLUCOSE 120 mg/dL (75-110); POTASSIUM 4.1 mmol/L (3.6-5.0); SODIUM 140.5 mmol/L (137-145)
[2018-12-23] MEDS: FONDAPARINUX SODIUM INJ 2.5 MG/0.5 ML DISP.SYRIN SUBCUT SCH (08:56)
[2018-12-23] MEDS ORDERED: CEFTRIAXONE 2 GM/D5W RTU 2 GM/50 ML RTUPB IV SCH (10:00)
[2018-12-23] MEDS: DOCUSATE SODIUM 100 MG CAPSULE PO SCH ×2 (10:15→17:35)
[2018-12-23] MEDS: FAMOTIDINE INJ/PF 20 MG/2 ML SDV IV SCH ×2 (10:17→21:22)
[2018-12-23] MEDS ORDERED: BUTALB/ACETAMINOPHEN/CAFFEINE 1 TAB EACH PO ONE (10:30)
[2018-12-23 13:04] LABS: APPEARANCE ALL TUBES CLEAR; COLOR TUBE 1 STRAW; COLOR TUBE 2 COLORLESS; COLOR TUBE 3 COLORLESS; COLOR TUBE 4 COLORLESS
[2018-12-23] MEDS ORDERED: VANCOMYCIN HCL 1,500 MG in DEXTROSE 5%-WATER 250 ML IV SCH (14:00)
--- NOTE | 2018-12-23 14:59 | Progress Note ---
Provider Note Provider Note: ID consult Note Asked to review patient's chart by Dr Germain. Pt not seen or examined. Pt is a 33 year old man who came to ED on 12/21 with c/o 2 days headache, body aches and fever and returned again on 12/22 with continued complaints of severe headache worsened by movement but without meningismus or papilledema on exam. He had LP performed with clear colorless CSF with some RBCs initially due to traumatic tap that cleared by 4th CSF bottle. CSF glucose and protein were normal; mild CSF pleocytosis present with 31 WBCs. BCx are pending. CSF gram stain has no bacteria and no growth x [address] head without contrsat on 12/21 that did not show any acute intracranial findings and CTA of the head that did not show aneurysm, AVM, or any filling defect c/w venous thrombosis. Impression/Recommendations - Agree, most consistent with aseptic meningitis, which will require symptomatic management. - There is very little to offer in terms of specific pathogen-directed therapy (even if pt had aseptic meningitis associated with new outbreak of HSV-2 gential herpes infection, acyclovir could be given, but its role in immunocompetent pt is not clear). - Can discontinue Rocephin and vancomycin based on CSF formula, lack of organisms on CSF gram stain and CSF culture negative x 1 day. Socrates Mcdonald MD [facility] Infectious Diseases pager [phone]
--- NOTE | 2018-12-23 16:11 | PDOC PROGRESS REPORT ---
Subjective Progress Note for:: 12/23/18 Subjective:: This is a 33 years old male patient who presents to [facility] at 2 occasions with chief complaint of persistent headache and associated fever. His CT head is negative and his CSF profile is compatible with aseptic meningitis. The on-call night physician started the patient with ceftriaxone and vancomycin. Dr. Socrates Mcdonald's recommendation I discontinued the vancomycin and ceftriaxone and empirically started him on acyclovir. His headache has been subsiding after he started on butalbital. Reason For Visit: ASEPTIC MENINGITIS Physical Exam Vital Signs: Temp Pulse Resp BP Pulse Ox 98.5 F 60 20 118/73 97 12/23/18 09:30 12/23/18 09:30 12/23/18 09:30 12/23/18 12:01 12/23/18 12:01 Intake & Output 12/22/18 12/23/18 12/24/18 06:59 06:59 06:59 Intake Total 1637 663 Balance 1637 663 Weight 108.1 kg General appearance: PRESENT: no acute distress, well-developed, well-nourished Head exam: PRESENT: atraumatic, normocephalic Eye exam: PRESENT: conjunctiva pink, EOMI, PERRLA. ABSENT: scleral icterus Ear exam: PRESENT: normal external ear exam Mouth exam: PRESENT: moist, tongue midline Neck exam: ABSENT: carotid bruit, JVD, lymphadenopathy, thyromegaly Respiratory exam: PRESENT: clear to auscultation diaja. ABSENT: rales, rhonchi, wheezes Cardiovascular exam: PRESENT: RRR. ABSENT: diastolic murmur, rubs, systolic murmur Pulses: PRESENT: normal dorsalis pedis pul Vascular exam: PRESENT: normal capillary refill GI/Abdominal exam: PRESENT: normal bowel sounds, soft. ABSENT: distended, guarding, mass, organolmegaly, rebound, tenderness Rectal exam: PRESENT: deferred Extremities exam: PRESENT: full ROM. ABSENT: calf tenderness, clubbing, pedal edema Neurological exam: PRESENT: alert, awake, oriented to person, oriented to place, oriented to time, oriented to situation, CN II-XII grossly intact. ABSENT: motor sensory deficit Psychiatric exam: PRESENT: appropriate affect, normal mood. ABSENT: homicidal ideation, suicidal ideation Skin exam: PRESENT: dry, intact, warm. ABSENT: cyanosis, rash Results Laboratory Results: 12/23/18 06:20 12/23/18 06:20 12/22/18 12/22/18 12/22/18 20:05 20:05 20:05 WBC RBC Hgb Hct MCV MCH MCHC RDW Plt Count Seg Neutrophils % Lymphocytes % Monocytes % Eosinophils % Basophils % Absolute Neutrophils Absolute Lymphocytes Absolute Monocytes Absolute Eosinophils Absolute Basophils Sodium Potassium Chloride Carbon Dioxide Anion Gap BUN Creatinine Est GFR ( Amer) Est GFR (Non-Af Amer) Glucose Lactic Acid Calcium Magnesium Total Bilirubin AST ALT Alkaline Phosphatase Total Protein Albumin Fluid Tube Number 1 4 CSF Volume 4.0 4.0 CSF Appearance CLEAR CLEAR CSF WBC 68 H 31 H CSF RBC 1285 H 85 CSF Color (1) STRAW STRAW CSF Appearance (1) CLEAR CSF Color (2) COLORLESS COLORLESS CSF Appearance (2) CLEAR CSF Color (3) COLORLESS COLORLESS CSF Appearance (3) CLEAR CSF Color (4) COLORLESS COLORLESS CSF Appearance (4) CLEAR CSF Glucose 64 CSF Total Protein 56 12/22/18 12/22/18 12/22/18 20:46 20:46 20:46 WBC 7.7 RBC 4.75 Hgb 14.0 Hct 40.7 MCV 86 MCH 29.4 MCHC 34.3 RDW 12.8 Plt Count 202 Seg Neutrophils % 63.6 Lymphocytes % 28.4 Monocytes % 7.5 Eosinophils % 0.1 Basophils % 0.4 Absolute Neutrophils 4.9 Absolute Lymphocytes 2.2 Absolute Monocytes 0.6 Absolute Eosinophils 0.0 Absolute Basophils 0.0 Sodium 141.0 Potassium 3.8 Chloride 104 Carbon Dioxide 26 Anion Gap 11 BUN 12 Creatinine 0.86 Est GFR ( Amer) > 60 Est GFR (Non-Af Amer) > 60 Glucose 112 H Lactic Acid 1.6 Calcium 9.5 Magnesium Total Bilirubin 1.0 AST 27 ALT 41 Alkaline Phosphatase 46 Total Protein 7.0 Albumin 4.4 Fluid Tube Number CSF Volume CSF Appearance CSF WBC CSF RBC CSF Color (1) CSF Appearance (1) CSF Color (2) CSF Appearance (2) CSF Color (3) CSF Appearance (3) CSF Color (4) CSF Appearance (4) CSF Glucose CSF Total Protein 12/23/18 12/23/18 06:20 06:20 WBC 8.0 RBC 4.58 Hgb 13.6 Hct 39.5 MCV 86 MCH 29.7 MCHC 34.5 RDW 13.3 Plt Count 202 Seg Neutrophils % 69.2 Lymphocytes % 24.4 Monocytes % 6.1 Eosinophils % 0.0 Basophils % 0.3 Absolute Neutrophils 5.5 Absolute Lymphocytes 2.0 Absolute Monocytes 0.5 Absolute Eosinophils 0.0 Absolute Basophils 0.0 Sodium 140.5 Potassium 4.1 Chloride 104 Carbon Dioxide 28 Anion Gap 9 BUN 9 Creatinine 0.86 Est GFR ( Amer) > 60 Est GFR (Non-Af Amer) > 60 Glucose 120 H Lactic Acid Calcium 8.5 Magnesium 1.6 Total Bilirubin AST ALT Alkaline Phosphatase Total Protein Albumin Fluid Tube Number CSF Volume CSF Appearance CSF WBC CSF RBC CSF Color (1) CSF Appearance (1) CSF Color (2) CSF Appearance (2) CSF Color (3) CSF Appearance (3) CSF Color (4) CSF Appearance (4) CSF Glucose CSF Total Protein 12/22/18 20:46 Troponin I < 0.012 Impressions: Head CTA 12/22/18 20:09 IMPRESSION: Unremarkable CTA and CTV, as above. TECHNICAL DOCUMENTATION: Quality ID # 436: Final reports with documentation of one or more dose reduction techniques (e.g., Automated exposure control, adjustment of the mA and/or kV according to patient size, use of iterative reconstruction technique) copyright 2011 [employer]- All Rights Reserved Assessment & Plan - Diagnosis (1) Septic meningitis Is this a current diagnosis for this admission?: Yes Plan: Symptomatic and supportive management. Patient empirically started on Ceclor will (2) Intractable headache Qualifiers: Headache type: tension-type Is this a current diagnosis for this admission?: Yes Plan: Patient is responding to butalbital.
[2018-12-23] MEDS: BUTALB/ACETAMINOPHEN/CAFFEINE 1 TAB EACH PO PRN (17:03)
[2018-12-23] MEDS: ACYCLOVIR SODIUM 750 MG in NORMAL SALINE 250 ML IV SCH (18:03)
[2018-12-24] MEDS: ACYCLOVIR SODIUM 750 MG in NORMAL SALINE 250 ML IV SCH ×3 (01:23→17:06)
[2018-12-24] MEDS: NALBUPHINE HCL INJ 10 MG/1 ML AMPULE IV PRN ×3 (05:47→21:23)
[2018-12-24] MEDS: BUTALB/ACETAMINOPHEN/CAFFEINE 1 TAB EACH PO PRN ×3 (05:48→21:11)
[2018-12-24 07:42] LABS: ABSOLUTE EOSINOPHILS # (AUTO) 0.1 10^3/uL (0.0-0.6); ABSOLUTE LYMPHOCYTES (AUTO) 3.1 10^3/uL (0.5-4.7); ABSOLUTE MONOCYTES (AUTO) 0.5 10^3/uL (0.1-1.4); ABSOLUTE NEUT (AUTO) 4.4 10^3/uL (1.7-8.2); BASOPHILS % (AUTO) 0.5 % (0-2); EOSINOPHILS % (AUTO) 0.6 % (0-6); HEMATOCRIT 39.2 % (37.9-51.0); HEMOGLOBIN 13.8 g/dL (13.5-17.0); LYMPHOCYTES % (AUTO) 38.4 % (13-45); MEAN CORPUSCULAR HEMOGLOBIN 29.8 pg (27.0-33.4); MEAN CORPUSCULAR HGB CONC 35.1 g/dL (32.0-36.0); MEAN CORPUSCULAR VOLUME 85 fl (80-97); PLATELET COUNT 205 10^3/uL (150-450); RED BLOOD COUNT 4.63 10^6/uL (4.35-5.55); RED CELL DISTRIBUTION WIDTH 12.9 % (11.5-14.0); SEGMENTED NEUTROPHILS % (AUTO) 54.5 % (42-78); TOTAL CELLS COUNTED % (AUTO) 100 %
[2018-12-24 08:16] LABS: VANCOMYCIN,TROUGH < 5.0 ug/mL (5.0-20.0)
[2018-12-24 08:22] LABS: ANION GAP 8 (5-19); BLOOD UREA NITROGEN 9 mg/dL (7-20); CALCIUM 8.9 mg/dL (8.4-10.2); CARBON DIOXIDE 27 mmol/L (22-30); CHLORIDE 107 mmol/L (98-107); GLUCOSE 111 mg/dL (75-110); POTASSIUM 3.7 mmol/L (3.6-5.0); SODIUM 141.8 mmol/L (137-145)
[2018-12-24] MEDS: FONDAPARINUX SODIUM INJ 2.5 MG/0.5 ML DISP.SYRIN SUBCUT SCH (08:53)
[2018-12-24] MEDS: DOCUSATE SODIUM 100 MG CAPSULE PO SCH ×2 (09:06→17:14)
[2018-12-24] MEDS: FAMOTIDINE INJ/PF 20 MG/2 ML SDV IV SCH ×2 (09:06→21:11)
--- NOTE | 2018-12-24 16:37 | PDOC PROGRESS REPORT ---
Subjective Progress Note for:: 12/24/18 Subjective:: I seen patient sitting up by the bedside. He reports his headache is markedly subsiding. He is potential discharge for tomorrow Reason For Visit: ASEPTIC MENINGITIS Physical Exam Vital Signs: Temp Pulse Resp BP Pulse Ox 98.6 F 69 16 131/80 H 98 12/24/18 11:09 12/24/18 11:09 12/24/18 11:09 12/24/18 11:09 12/24/18 11:09 Intake & Output 12/23/18 12/24/18 12/25/18 06:59 06:59 06:59 Intake Total 1637 2973 1183 Balance 1637 2973 1183 Weight 108.1 kg 107.4 kg General appearance: PRESENT: no acute distress, well-developed, well-nourished Head exam: PRESENT: atraumatic, normocephalic Eye exam: PRESENT: conjunctiva pink, EOMI, PERRLA. ABSENT: scleral icterus Ear exam: PRESENT: normal external ear exam Mouth exam: PRESENT: moist, tongue midline Neck exam: ABSENT: carotid bruit, JVD, lymphadenopathy, thyromegaly Respiratory exam: PRESENT: clear to auscultation daija. ABSENT: rales, rhonchi, wheezes Cardiovascular exam: PRESENT: RRR. ABSENT: diastolic murmur, rubs, systolic murmur Pulses: PRESENT: normal dorsalis pedis pul Vascular exam: PRESENT: normal capillary refill GI/Abdominal exam: PRESENT: normal bowel sounds, soft. ABSENT: distended, guard ing, mass, organolmegaly, rebound, tenderness Rectal exam: PRESENT: deferred Extremities exam: PRESENT: full ROM. ABSENT: calf tenderness, clubbing, pedal edema Neurological exam: PRESENT: alert, awake, oriented to person, oriented to place, oriented to time, oriented to situation, CN II-XII grossly intact. ABSENT: motor sensory deficit Psychiatric exam: PRESENT: appropriate affect, normal mood. ABSENT: homicidal ideation, suicidal ideation Skin exam: PRESENT: dry, intact, warm. ABSENT: cyanosis, rash Results Laboratory Results: 12/24/18 06:25 12/24/18 06:25 12/24/18 12/24/18 06:25 06:25 WBC 8.0 RBC 4.63 Hgb 13.8 Hct 39.2 MCV 85 MCH 29.8 MCHC 35.1 RDW 12.9 Plt Count 205 Seg Neutrophils % 54.5 Lymphocytes % 38.4 Monocytes % 6.0 Eosinophils % 0.6 Basophils % 0.5 Absolute Neutrophils 4.4 Absolute Lymphocytes 3.1 Absolute Monocytes 0.5 Absolute Eosinophils 0.1 Absolute Basophils 0.0 Sodium 141.8 Potassium 3.7 Chloride 107 Carbon Dioxide 27 Anion Gap 8 BUN 9 Creatinine 0.94 Est GFR ( Amer) > 60 Est GFR (Non-Af Amer) > 60 Glucose 111 H Calcium 8.9 Magnesium 1.7 12/22/18 20:46 Troponin I < 0.012 Impressions: Head CTA 12/22/18 20:09 IMPRESSION: Unremarkable CTA and CTV, as above. TECHNICAL DOCUMENTATION: Quality ID # 436: Final reports with documentation of one or more dose reduction techniques (e.g., Automated exposure control, adjustment of the mA and/or kV according to patient size, use of iterative reconstruction technique) copyright 2011 [employer]- All Rights Reserved Assessment & Plan - Diagnosis (1) Septic meningitis Is this a current diagnosis for this admission?: Yes Plan: Symptomatic and supportive management. Patient empirically started on Ceclor will (2) Intractable headache Qualifiers: Headache type: tension-type Is this a current diagnosis for this admission?: Yes Plan: Subsiding
[2018-12-25] MEDS: ACYCLOVIR SODIUM 750 MG in NORMAL SALINE 250 ML IV SCH ×2 (03:05→10:54)
[2018-12-25] MEDS: NALBUPHINE HCL INJ 10 MG/1 ML AMPULE IV PRN ×3 (03:07→10:53)
[2018-12-25] MEDS: BUTALB/ACETAMINOPHEN/CAFFEINE 1 TAB EACH PO PRN ×2 (03:15→12:45)
[2018-12-25 07:24] LABS: ABSOLUTE EOSINOPHILS # (AUTO) 0.1 10^3/uL (0.0-0.6); ABSOLUTE LYMPHOCYTES (AUTO) 2.9 10^3/uL (0.5-4.7); ABSOLUTE MONOCYTES (AUTO) 0.3 10^3/uL (0.1-1.4); ABSOLUTE NEUT (AUTO) 2.6 10^3/uL (1.7-8.2); BASOPHILS % (AUTO) 0.6 % (0-2); EOSINOPHILS % (AUTO) 2.1 % (0-6); HEMATOCRIT 39.3 % (37.9-51.0); LYMPHOCYTES % (AUTO) 48.4 % (13-45); MEAN CORPUSCULAR HEMOGLOBIN 30.2 pg (27.0-33.4); MEAN CORPUSCULAR HGB CONC 35.6 g/dL (32.0-36.0); MEAN CORPUSCULAR VOLUME 85 fl (80-97); MONOCYTES % (AUTO) 5.6 % (3-13); PLATELET COUNT 224 10^3/uL (150-450); RED BLOOD COUNT 4.64 10^6/uL (4.35-5.55); RED CELL DISTRIBUTION WIDTH 12.7 % (11.5-14.0); SEGMENTED NEUTROPHILS % (AUTO) 43.3 % (42-78); TOTAL CELLS COUNTED % (AUTO) 100 %; WHITE BLOOD COUNT 5.9 10^3/uL (4.0-10.5)
[2018-12-25 07:37] LABS: ANION GAP 9 (5-19); BLOOD UREA NITROGEN 15 mg/dL (7-20); CALCIUM 9.3 mg/dL (8.4-10.2); CARBON DIOXIDE 28 mmol/L (22-30); CHLORIDE 105 mmol/L (98-107); GLUCOSE 106 mg/dL (75-110); SODIUM 141.6 mmol/L (137-145)
[2018-12-25] MEDS: DOCUSATE SODIUM 100 MG CAPSULE PO SCH (10:22)
[2018-12-25] MEDS: FONDAPARINUX SODIUM INJ 2.5 MG/0.5 ML DISP.SYRIN SUBCUT SCH (10:22)
[2018-12-25] MEDS ORDERED: ONDANSETRON 4 MG TAB.RAPDIS ONE (10:35)
[2018-12-25] MEDS: FAMOTIDINE INJ/PF 20 MG/2 ML SDV IV SCH (10:53)
[2018-12-25] MEDS ORDERED: MECLIZINE HCL 25 MG TABLET PO ONE (11:30)
[2018-12-25 13:20] VITALS: BP 130/68
--- NOTE | 2018-12-27 16:51 | PDOC DISCHARGE SUMMARY ---
General - Admit/Disc Date/PCP Admission Date/Primary Care Provider: 12/22/18 22:18 ROZ AGUAYO-Jim Discharge Date: 12/25/18 - Discharge Diagnosis (1) Aseptic meningitis Is this a current diagnosis for this admission?: Yes - Additional Information Resuscitation Status: Full Code Discharge Diet: Regular Discharge Activity: Activity As Tolerated, Balance Activity w/Rest, Slowly Increase Activity Prescriptions: Acyclovir [Zovirax 800 mg Tablet] 800 mg PO 5XD 4 Days #20 tab Meclizine HCl [Antivert 25 mg Tablet] 25 mg PO Q8H PRN #15 tablet PRN Reason: Ondansetron HCl [Zofran 4 mg Tablet] 1 tab PO Q4H PRN #10 tablet PRN Reason: Home Medications: Acyclovir [Zovirax 800 mg Tablet] 800 mg PO 5XD 4 Days #20 tab 12/25/18 Meclizine HCl [Antivert 25 mg Tablet] 25 mg PO Q8H PRN #15 tablet 12/25/18 Ondansetron HCl [Zofran 4 mg Tablet] 1 tab PO Q4H PRN #10 tablet 12/25/18 History of Present Illness History of Present Illness: Admitting hospitalist's H&P: OLIVIA KHAN is a 33 year old male, 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 The patient had been treated in the ER yesterday and was discharged home however his headache returned and he began having increased nausea and vomiting and was running a fever today causing him to be asked to return to the ER for further evaluation. He admits that he began having a mild, dull, continuous, generalized headache 2 days prior to admission which has gradually increased to the point where it is now a severe, dull, continuous, throbbing, global headache which over the last 24 hours has been accompanied by nausea and vomiting with a fever noted earlier today. The headache is made worse by activity especially movement of his head bending forward or extending. He denies prior similar episodes and has not identified any other aggravating or ameliorating factors for his headache. In the emergency room he was treated with IV fluids and was given Haldol to control his nausea and vomiting, with the added benefit that it also seemed to provide significant relief of his headache. His lumbar puncture showed an aseptic meningitis picture which clinically matched the rest of his laboratory evaluation. Because of his failure to resolve with attempted outpatient treatment he will be hospitalized for further evaluation and ongoing care. Hospital Course Hospital Course: This is a 33 yr old male with no significant PMH who was admitted with fever, bodyaches and headache. He underwent LP which was consistent with aseptic meningitis. He was initially on Rocephin and vancomycin. ID was consulted and recommended discontinuing both and recommended mostly supportive management. He was empirically continued anywa y on Acyclovir. He did have significant improvement of his symptoms and returned to his baseline. Physical Exam Vital Signs: Temp Pulse Resp BP Pulse Ox 97.8 F 79 18 130/68 H 98 12/25/18 13:19 12/25/18 13:19 12/25/18 13:19 12/25/18 13:19 12/25/18 13:19 Intake & Output 12/24/18 12/25/18 12/26/18 06:59 06:59 06:59 Intake Total 2973 2731 Balance 2973 2731 Weight 236 lb 12.423 oz 238 lb 5.115 oz General appearance: PRESENT: no acute distress, well-developed, well-nourished Head exam: PRESENT: atraumatic, normocephalic Eye exam: PRESENT: conjunctiva pink, EOMI, PERRLA. ABSENT: scleral icterus Ear exam: PRESENT: normal external ear exam Mouth exam: PRESENT: moist, tongue midline Neck exam: ABSENT: carotid bruit, JVD, lymphadenopathy, thyromegaly Respiratory exam: PRESENT: clear to auscultation daija. ABSENT: rales, rhonchi, wheezes Cardiovascular exam: PRESENT: RRR. ABSENT: diastolic murmur, rubs, systolic murmur Pulses: PRESENT: normal dorsalis pedis pul GI/Abdominal exam: PRESENT: normal bowel sounds, soft. ABSENT: distended, guarding, mass, organolmegaly, rebound, tenderness Rectal exam: PRESENT: deferred Neurological exam: PRESENT: alert, awake, oriented to person, oriented to place, oriented to time, oriented to situation, CN II-XII grossly intact. ABSENT: motor sensory deficit Results Laboratory Results: 12/25/18 06:00 12/25/18 06:00 12/25/18 12/25/18 06:00 06:00 WBC 5.9 RBC 4.64 Hgb 14.0 Hct 39.3 MCV 85 MCH 30.2 MCHC 35.6 RDW 12.7 Plt Count 224 Seg Neutrophils % 43.3 Lymphocytes % 48.4 H Monocytes % 5.6 Eosinophils % 2.1 Basophils % 0.6 Absolute Neutrophils 2.6 Absolute Lymphocytes 2.9 Absolute Monocytes 0.3 Absolute Eosinophils 0.1 Absolute Basophils 0.0 Sodium 141.6 Potassium 4.0 Chloride 105 Carbon Dioxide 28 Anion Gap 9 BUN 15 Creatinine 0.98 Est GFR ( Amer) > 60 Est GFR (Non-Af Amer) > 60 Glucose 106 Calcium 9.3 Magnesium 1.9 12/22/18 20:05 Cerebral Spinal Fluid - Tube 3 (Csf) Gram Stain - Final 12/22/18 20:05 Cerebral Spinal Fluid - Tube 3 (Csf) CSF Culture - Final NO GROWTH 3 DAYS 12/22/18 20:46 Troponin I < 0.012 Impressions: Head CTA 12/22/18 20:09 IMPRESSION: Unremarkable CTA and CTV, as above. TECHNICAL DOCUMENTATION: Quality ID # 436: Final reports with documentation of one or more dose reduction techniques (e.g., Automated exposure control, adjustment of the mA and/or kV according to patient size, use of iterative reconstruction technique) copyright 2011 [employer]- All Rights Reserved Qualifiers - * PATIENT BEING DISCHARGED WITH ANY OF THE FOLLOWING DIAGNOSIS: No
== END 2018-12-25 14:07 | disposition home or self-care (01) | DRG 99 ==
LOC: ER 19:34 → EH 22:18 → 5 12-23 14:41
PROVIDERS: ADMIT Emergency Medicine; ATTEND Emergency Medicine
PROC: 009U3ZX Drainage of Spinal Canal, Percutaneous Approach, Diagnostic (ICD-10-PCS; principal; 2018-12-22)
DX: G03.0 Nonpyogenic meningitis (principal); R11.2 Nausea with vomiting, unspecified; E66.9 Obesity, unspecified; G44.201 Tension-type headache, unspecified, intractable; Z79.899 Other long term (current) drug therapy; Z90.49 Acquired absence of other specified parts of digestive tract; Z83.3 Family history of diabetes mellitus; Z82.49 Family history of ischemic heart disease and other diseases of the circulatory system
CPT/HCPCS: 36415; 70496; 80048; 80053; 80202; 82945; 83605; 83735; 84157; 84484; 85025; 87040; 87070; 87205; 89050; 93005; 93010; 96361; 96365; 96374; 96375; 99291; J0133; J0696; J1630; J1652; J1885; J2300; J2765; J3370; J3480; J3490; J7050; J7060; J7120; S0028; S0119